=== PATIENT | male | born 1965 | race Caucasian/White ===

== ENCOUNTER 2024-03-03 17:00 | Emergency (ER) | payer BC ==
[2024-03-03 17:29] VITALS: BP 129/84; PULSE 73
[2024-03-03] MEDS: Lidocaine 1% 20 ML MDV INJECT ONE (17:42)
[2024-03-03] MEDS: Diphtheria,Pertussis(Acell),Tetanus Vaccine 0.5 ML Syringe IM ONE (17:54)
== END 2024-03-03 18:05 | disposition home or self-care (01) ==
LOC: KA.ED 17:00
DX: S61.511A Laceration without foreign body of right wrist, initial encounter (principal); I25.2 Old myocardial infarction; Z79.82 Long term (current) use of aspirin; Z79.899 Other long term (current) drug therapy; Z88.0 Allergy status to penicillin; W27.8XXA Contact with other nonpowered hand tool, initial encounter
CPT/HCPCS: 12002; 90471; 90715; 99282-25; 99283; J3490